=== PATIENT | male | born 1965 ===

== ENCOUNTER 2020-01-23 08:50 | Day surgery (SDC) | payer OTHER ==
[~2020-01-23 08:50] MED LIST: AMLODI PO; COZAAR25 MG PO; CRESTOR5 MG PO; DESCOVY PO; FORTAMET500 MG PO; TIVICAY50 MG PO
[2020-01-23] MEDS ORDERED: ULTRAM50 MG PO (17:45)
[2020-01-23] MEDS ORDERED: TYLENOL ARTHRI650 MG PO (17:45)
== END 2020-01-23 20:15 | disposition home or self-care (01) ==
LOC: CIR.AMB 08:50
PROVIDERS: ATTEND Surgery
DX: K09.8 Other cysts of oral region, not elsewhere classified (principal); Z20.828 Contact with and (suspected) exposure to other viral communicable diseases

== ENCOUNTER 2020-02-03 08:42 | Emergency (ER) | payer OTHER ==
[~2020-02-03] VITALS: Ht 162.6 cm; Wt 71.7 kg
[~2020-02-03 08:42] MED LIST changes: +TYLENOL ARTHRI650 MG PO; +ULTRAM50 MG PO
[2020-02-03] MEDS ORDERED: INTESTINEX680 M2 PO (18:30)
[2020-02-03] MEDS ORDERED: RAYOS5 MG PO (18:30)
[2020-02-03] MEDS ORDERED: AMOX1TAB5 PO (18:30)
== END 2020-02-03 18:55 | disposition home or self-care (01) ==
LOC: ER 08:42
DX: B20 Human immunodeficiency virus [HIV] disease (principal); R59.0 Localized enlarged lymph nodes; R13.19 Other dysphagia; M54.2 Cervicalgia
CPT/HCPCS: 70491; Q9965